=== PATIENT | female | born 1985 | race Caucasian/White ===

== ENCOUNTER → 2023-07-17 15:05 | Outpatient (REF) | payer BC, SELFPAY | LOC: RAD 15:05 | PROVIDERS: ATTENDING PHYSICIAN Nurse Practitioner Family | DX: M54.2 Cervicalgia (principal); M54.50 Low back pain, unspecified | CPT/HCPCS: 72050; 72110 ==

== ENCOUNTER 2024-08-14 00:30 | Emergency (ER) | payer OTHER, SELFPAY ==
[2024-08-14 00:33] VITALS: BP 117/70
[2024-08-14 00:34] VITALS: BP 117/70
[2024-08-14 00:41] VITALS: BMI 26.1
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
== END 2024-08-14 01:47 | disposition home or self-care (01) ==
LOC: EMR 00:30
PROVIDERS: EMERGENCY PHYSICIAN Emergency Medicine; FAMILY PHYSICIAN Nurse Practitioner Family
DX: M79.601 Pain in right arm (principal); Y35.813A Legal intervention involving manhandling, suspect injured, initial encounter
CPT/HCPCS: 99284; 73060; 73090; 93005

== ENCOUNTER → 2024-08-25 09:36 | Outpatient (REF) | payer OTHER, SELFPAY | LOC: MRI 09:36 | PROVIDERS: ATTENDING PHYSICIAN Nurse Practitioner Family | DX: M54.50 Low back pain, unspecified (principal) | CPT/HCPCS: 72148 ==